=== PATIENT | female | born 1960 | race Caucasian/White ===

== ENCOUNTER 2022-04-16 05:03 | Observation (INO) ==
--- NOTE | 2022-03-13 14:09 | PAT Medication Instructions ---
Medication Instructions Date of Service March 13, 2022 Home Medications acetaminophen 650 mg tablet,extended release 1,300 mg PO QPM doxycycline monohydrate 100 mg tablet 100 mg PO QAM hydrochlorothiazide 25 mg tablet 25 mg PO QAM ibuprofen 800 mg tablet 800 mg PO QAM levothyroxine 175 mcg tablet 175 mcg PO QAM metoprolol tartrate 50 mg tablet 50 mg PO QAM ASK your surgeon for instructions ibuprofen 800 mg tablet 800 mg PO QAM DO NOT take the morning of surgery hydrochlorothiazide 25 mg tablet 25 mg PO QAM Take morning of surgery With a small sip of water, OTHERWISE NOTHING TO EAT OR DRINK AFTER MIDNIGHT: doxycycline monohydrate 100 mg tablet 100 mg PO QAM levothyroxine 175 mcg tablet 175 mcg PO QAM metoprolol tartrate 50 mg tablet 50 mg PO QAM Take evening before surgery acetaminophen 650 mg tablet,extended release 1,300 mg PO QPM Other Notes If you have any questions please call us at [phone] or [phone] or [phone] or [phone]
--- NOTE | 2022-03-20 09:42 | Anesthesiology Consultation ---
Date of Service March 20, 2022 Assessment & Plan (1) Encounter for pre-operative examination: - anesthesia concerns: pt reports trouble with spinal with last , was told had "arthritis" in spine, multiple unsuccessful attempts made. Neuraxial vs general anesthesia discussed with patient. She plans to further discuss with assigned anesthesiologist familia BULLOCK. She denied additional questions or concerns. - Outpatient joint assessment: Patient is currently scheduled for inpatient pathway. If re-evaluated pending system levels during current pandemic/surgeon requests outpatient pathway, patient is not acceptable candidate for outpatient joint program. - bilat TKR vs staged discussed, and patient wishes to proceed with bilat TKR accepting risk. She states this information was also provided by surgeon's office. Chart Review Chart Review: Acceptable Risk for Surgery and Patient seen in Pre Admission Testing Teaching & Discussion Pre-Anesthesia Teaching/Discussion Notes: Instructed NPO after midnight before surgery, except medications with 15 cc of water. Medication instructions provided according to the PAT guidelines. History Surgery Operation Date: 04/16/22 10:30 Proposed Procedures p Bilateral Total Knee Arthroplasty - Saqib Colon DO Height/Weight Height: 5 ft 7 in Weight: 111.5 kg Allergies Allergy/AdvReac Type Severity Reaction Status Date / Time Penicillins Allergy Intermediate Rash Verified 03/13/22 12:09 Medications Home Medications Medication Instructions Recorded Confirmed Last Taken acetaminophen 650 mg 1,300 mg PO QPM 03/13/22 03/13/22 Unknown tablet,extended release doxycycline monohydrate 100 mg 100 mg PO QAM 03/13/22 03/13/22 Unknown tablet hydrochlorothiazide 25 mg tablet 25 mg PO QAM 03/13/22 03/13/22 Unknown ibuprofen 800 mg tablet 800 mg PO QAM 03/13/22 03/13/22 Unknown levothyroxine 175 mcg tablet 175 mcg PO QAM 03/13/22 03/13/22 Unknown metoprolol tartrate 50 mg tablet 50 mg PO QAM 03/13/22 03/13/22 Unknown Past Medical History Medical History (Updated 03/20/22 @ 10:01 by Karla Fregoso PA-C) GERD (gastroesophageal reflux disease) rare, stable per pt History of anesthesia reaction PT REPORTS TROUBLE WITH SPINAL WITH LAST , WAS TOLD HAD "ARTHRITIS" IN SPINE, MULTIPLE UNSUCCESSFUL ATTEMPTS MADE History of COVID-19 07/2020- headache, nausea and 11/2021 sinus congestion, cough, body aches, joint pain-no hospitalization with either episode; no current issues Hx of pilonidal cyst x3 Hypertension controlled, stable per pt Hypothyroidism Nausea and vomiting after administration of anesthetic agent denies needing scop patch Rosacea Patient denies h/o stroke, seizures, heart attack, heart failure, DM, blood clots or blood transfusions. Exercise / Class Metabolic Activity III < 4 Walking/Shop/Light housework (denies CP or SOB with usual activities) Past Family History Family History Other No family history of adverse response to anesthesia Past Surgical History Surgical History (Updated 03/20/22 @ 10:00 by Karla Fregoso PA-C) History of cholecystectomy History of lumpectomy of right breast solid mass, noncancerous per pt, pathology benign History of total abdominal hysterectomy Hx of arthroscopic knee surgery right Hx of breast biopsy Hx of breast surgery right duct removal Hx of section x 2 Hx of partial thyroidectomy right Hx of tonsillectomy Past Anesthesia History No Family Hx of Anesthesia Complications and Other (PT REPORTS TROUBLE WITH SPINAL WITH LAST , WAS TOLD HAD "ARTHRITIS" IN SPINE, MULTIPLE UNSUCCESSFUL ATTEMPTS MADE ) History of PONV History of PONV (denies needing scop patch) and Hx of Motion Sickness Social History Smoking Status: Former smoker tobacco type: cigarettes Do You Dip or Chew Tobacco: No Smoking End Date: QUIT ~30 YRS AGO Hx Alcohol Use: Yes alcohol intake frequency: holidays/special occasions only Hx Substance Use: No substance use type: does not use Review of Systems Snoring, denies witnessed apneas. Chronic intermittent palpitations with associated sensation of "taking breath away". Denies associated chest discomfort, dizziness or lightheadedness. She states has been ongoing x years, states PCP is aware. Denies change or worsening. Patient denies chest pain, shortness of breath, dyspnea on exertion, fever, chills, cough, or wheezing. Physical Exam Vital Signs Vitals BP 127/81 P 67 TEMP 98.1 SP02 98% on RA RESP 17 Physical Full cervical extension range of motion without pain TMD 3.5 finger breadths Mallampati Score 2 Dentition: multiple chipped and loose teeth, upper plate; denies bridges, caps or crowns Lungs: normal respiratory effort. Clear throughout to auscultation, no adventitious breath sounds Cardiac: regular rate and rhythm, no murmurs noted Carotid arteries: negative bruit bilat Lab Results Anesthesia Preop Results Results Anesthesia Widget: WBC 7.48 K/ul (4.8-10.8) 03/20/22 Hgb 15.1 g/dl (12.0-16.0) 03/20/22 Hct 43.3 % (34.1-44.9) 03/20/22 Plt 364 K/uL (130-400) 03/20/22 Na 137 mmol/L (136-145) 03/20/22 K 3.9 mmol/L (3.5-5.1) 03/20/22 Cl 99 mmol/L (98-107) 03/20/22 CO2 30 mmol/L (21-32) 03/20/22 BUN 16 mg/dl (6-23) 03/20/22 Creat 0.79 mg/dl (0.6-1.2) 03/20/22 Glucose Level 103 mg/dl (70-99(Fasting)) H 03/20/22 PT 10.2 Seconds (9.0-12.0) 03/20/22 PTT 27.6 Seconds (21.0-31.0) 03/20/22 INR 1.0 (0.9-1.1) 03/20/22 Blood Type O Positive 03/20/22 Antibody Screen NEGATIVE 03/20/22 Testing Electrocardiogram Date: 03/20/22 Sinus bradycardia, rate 58 bpm Nonspecific T wave abnormality anterolateral leads Chest X-Ray Date: 03/20/22 There is mild elevation of the right hemidiaphragm. No pneumothorax. No pleural fusions. The lungs are clear. The heart is normal in size. IMPRESSION: No acute process within the chest. COVID-19 Risk Screen Screening Information COVID-19 Screen Date: 03/20/22 Exposure 21 Days Family/Household +COVID Last 21 Days: No Exposure 10 Days Any COVID Exposure Last 10 Days: No Symptoms Last 10 Days Experienced COVID Sx Last 10 Days: No + COVID 0-90 Days COVID + in Last 0-90 Days: No
[2022-04-16] MEDS ORDERED: TRANEXAMIC ACID 1,000 MG **IV Intra-op IV SCH (06:00)
[2022-04-16] MEDS ORDERED: ACETAMINOPHEN 500 MG TAB PO SCH ×2 (06:00→14:00)
[2022-04-16] MEDS ORDERED: TRANEXAMIC ACID 1,000 MG **IV Pre-op IV SCH (06:00)
[2022-04-16] MEDS ORDERED: dexAMETHasone 4 MG TAB PO SCH (06:00)
[2022-04-16] MEDS ORDERED: GABAPENTIN 300 MG CAP PO SCH (06:00)
[2022-04-16] MEDS ORDERED: LR 500ML BOLUS, THEN 15ML/HR IV SCH (06:00)
[2022-04-16] MEDS ORDERED: ORTHO JOINT MIX INFIL SCH (06:00)
[2022-04-16] MEDS ORDERED: LR 60ML/HR IV SCH (06:00)
[2022-04-16] MEDS ORDERED: FAMOTIDINE 20 MG TAB PO SCH (06:00)
--- NOTE | 2022-04-16 06:17 | History & Physical Bridge Note ---
Date of Service April 16, 2022 History & Physical Bridge Note I have examined the patient, reviewed the History & Physical and in the interval since the performance of the History & Physical I have noted the following changes of clinical significance: no changes noted
[2022-04-16] MEDS ORDERED: BUPIVACAINE 0.5 % 5 MG/1 ML PF 10ML VIAL ONE (06:28)
[2022-04-16] MEDS ORDERED: ROPIVACAINE 0.5% 5 MG/ML 30 ML VIAL ONE (06:28)
[2022-04-16] MEDS ORDERED: LIDOCAINE 2% MPF LOCAL 5 ML VIAL INFIL ONE (06:37)
[2022-04-16] MEDS ORDERED: ONDANSETRON INJ 2 MG/ML 2 ML VIAL ONE (06:37)
[2022-04-16] MEDS ORDERED: PROPOFOL IV EMULSION 10 MG/ML 20 ML VIAL IV ONE ×3 (06:37→09:09)
[2022-04-16] MEDS ORDERED: MIDAZOLAM HCL 1 MG/ML 2ML VIAL ONE ×3 (06:38→07:36)
[2022-04-16] MEDS ORDERED: fentaNYL citrate 100 MCG/2 ML VIAL ONE (06:38)
[2022-04-16] MEDS ORDERED: ORTHO JOINT ANESTHETIC ONE (07:01)
[2022-04-16] MEDS ORDERED: ATROPINE SULFATE 0.1 MG/ML 10ML SYR IV PRN (07:07)
[2022-04-16] MEDS ORDERED: ePHEDrine sulfate 50 MG/ML AMP IV PRN (07:07)
[2022-04-16] MEDS ORDERED: fentaNYL citrate 100 MCG/2 ML VIAL IV PRN (07:07)
[2022-04-16] MEDS ORDERED: HYDROmorphone INJ 2 MG/ML SYR/VIAL IV PRN (07:07)
[2022-04-16] MEDS ORDERED: ONDANSETRON INJ 2 MG/ML 2 ML VIAL IV PRN ×2 (07:07→10:51)
[2022-04-16] MEDS ORDERED: KETAMINE 50 MG/5 ML SYRINGE ONE (07:20)
[2022-04-16] MEDS ORDERED: ePHEDrine sulfate 50 MG/ML SYR ONE (07:37)
--- NOTE | 2022-04-16 09:20 | Operative Report ---
PG Post Operative Report Pre & Post Diagnosis Operation Date: 04/16/22 07:00 Pre-Op Diagnosis: Degenerative Joint Disease Bilateral Knees Post-Op Diagnosis: Degenerative Joint Disease Bilateral Knees I identified the patient and participated in the time-out.: Yes Procedure Operation Date: 04/16/22 07:00 Actual Procedures p Bilateral Total Knee Arthroplasty(Bilateral) - Saqib Colon DO Surgeon Saqib Colon DO Cda Teacher Saqib Pate PA-C Estimated Blood Loss 50 Findings Consistent with Post-Op Diagnosis Specimens Right and left femoral and tibial bones Description of Procedure Kanwal arrived [facility] for the above procedure. She was seen in the preoperative holding area and both knees were identified and signed. She was given a preoperative antibiotic, TXA, a spinal anesthetic and adductor nerve blocks. She was taken back to the operating room and laid on the table in supine position. She was given basic sedation. Both knees were then prepped and draped in sterile fashion. A timeout was done, and the patient and the operative extremities were properly identified. Right knee implants used: I used a Arline Persona total knee arthroplasty system with a size 6 standard femur, E tibia, 31 oval patella, and a size 14 medial congruent polyethylene bearing. All components were cemented in place with Palacos G cement. A midline incision was made directly over the patella. Dissection was taken down to the extensor mechanism. A midvastus arthrotomy was used. The medial retinaculum was released and the fat pad was mostly excised. The knee was flexed and the ACL, PCL, and meniscus were removed. A drill was sent down the center of the femoral canal followed by an intramedullary omar. Off that omar a distal femoral cutting block was placed. 9 mm was resected off the distal femur at 5 of valgus. A posterior referencing AP sizing guide was then placed on the distal femur. The femur measured to be a size 6. 2 drill holes were placed in 3 of external rotation. A 4-in-1 cutting block was then impacted into place. Anterior, posterior, and chamfer cuts were then made. The proximal tibia was then exposed. An external tibial alignment guide was placed. A tibial cut guide was then anchored in place and the proximal tibia was then resected. The posterior aspect of the knee was then opened up and any additional meniscus fragments and osteophytes were removed. The tibia measured to be a size E. The tibial plate was then placed in the appropriate rotation and the tibia was drilled and punched. Trial components were then placed. I used a size 14 medial congruent polyethylene insert. The knee was brought through a full range of motion and felt to be stable. The peg holes for the femur were then drilled. The patella was then everted and 9 mm was resected off the posterior aspect of the patella. The patella measured to be a size 31 oval. 3 peg holes were then drilled. A trial patella was placed. The knee was once again brought through a full range of motion and felt to be stable. Trial components were then removed. The surrounding soft tissues were injected with 50 cc of an orthopedic pain control cocktail. All components were then cemented into place with Palacos G cement. The final polyethylene insert was then snapped into place. Once cement was dry the tourniquet was deflated. Hemostasis was obtained. A dilute betadyne lavage was then done for 3 minutes. The joint was then irrigated with normal saline solution. The midvastus arthrotomy was then closed with #1 Vicryl suture. The skin was closed with 2-0 Vicryl, 3-0V lock suture, and rabia. A Silverlon and a soft compressive dressing were placed. Left knee implants used: I used a Arline Persona total knee arthroplasty system with a size 7 standard femur, E tibia, 31 oval patella, and a size 13 medial congruent polyethylene bearing. All components were cemented in place with Palacos G cement. A midline incision was made directly over the patella. Dissection was taken down to the extensor mechanism. A midvastus arthrotomy was used. The medial retinaculum was released and the fat pad was mostly excised. The knee was flexed and the ACL, PCL, and meniscus were removed. A drill was sent down the center of the femoral canal followed by an intramedullary omar. Off that omar a distal femoral cutting block was placed. 9 mm was resected off the distal femur at 5 of valgus. A posterior referencing AP sizing guide was then placed on the distal femur. The femur measured to be a size 7. 2 drill holes were placed in 3 of external rotation. A 4-in-1 cutting block was then impacted into place. Anterior, posterior, and chamfer cuts were then made. The proximal tibia was then exposed. An external tibial alignment guide was placed. A tibial cut guide was then anchored in place and the proximal tibia was resected. The posterior aspect of the knee was then opened up and any additional meniscus fragments and osteophytes were removed. The tibia measured to be a size E. The tibial plate was then placed in the appropriate rotation and the tibia was drilled and punched. Trial components were then placed. I used a size 13 medial congruent polyethylene insert. The knee was brought through a full range of motion and felt to be stable. The peg holes for the femur were then drilled. The patella was then everted and 9 mm was resected off the posterior aspect of the patella. The patella measured to be a size 31 oval. 3 peg holes were then drilled. A trial patella was placed. The knee was once again brought through a full range of motion and felt to be stable. Trial components were then removed. The surrounding soft tissues were injected with 50 cc of an orthopedic pain control cocktail. All components were then cemented into place with Palacos G cement. The final polyethylene insert was then snapped into place. Once cement was dry the tourniquet was deflated. Hemostasis was obtained. A dilute betadyne lavage was then done for 3 minutes. The joint was then irrigated with normal saline solution. The midvastus arthrotomy was then closed with #1 Vicryl suture. The skin was closed with 2-0 Vicryl, 3-0V lock suture, and rabia. A Silverlon and a soft compressive dressing were placed. Dwayne was then transferred to a hospital bed and taken to the postanesthesia care unit in stable condition. She tolerated the procedure well. Saqib Pate PA-C, was present for the entire procedure. He was critical for patient positioning, prepping, draping, retraction exposure, wound closure and application of sterile dressing. I attest to the content of the Intraoperative Record and any orders documented therein. Any exceptions are noted below.
--- NOTE | 2022-04-16 10:26 | Anesthesiology Progress Note ---
Date of Service April 16, 2022 Anesthesia Post Procedure Vital Signs Vital Signs: Temp Pulse Pulse Resp BP Pulse Ox O2 Del Method 04/16/22 10:10 36.4 C L 65 12 102/68 98 Room Air 04/16/22 10:00 74 19 93/59 L 93 Room Air 04/16/22 09:50 70 17 89/61 L 95 Room Air 04/16/22 09:40 71 18 93/61 L 99 Oxymask 04/16/22 09:33 36.0 C L 85 16 96/63 L 95 Oxymask 04/16/22 05:41 36.5 C 72 20 145/96 H 100 Room Air O2 Flow Rate 04/16/22 10:10 04/16/22 10:00 04/16/22 09:50 04/16/22 09:40 5 04/16/22 09:33 5 04/16/22 05:41 Pain Intensity Left Knee: Pain Intensity: 4 Transfer of Care Handoff Completed per policy Notes Mental Status: alert / awake / arousable and participated in evaluation Patient Amnestic to Procedure: Yes Nausea / Vomiting: adequately controlled Pain: adequately controlled Airway Patency, RR, SpO2: stable & adequate BP & HR: stable & adequate Hydration State: stable & adequate Anesthetic Complications: no major complications apparent and Pt Satisfied with anesthetic care
--- NOTE | 2022-04-16 10:36 | XRay Report ---
TWO VIEWS RIGHT KNEE CLINICAL HISTORY: Postoperative examination. FINDINGS: AP and crosstable lateral portable views of the right knee are obtained. A right knee arthr oplasty is in near anatomic alignment. There has been undersurface remodeling of the patella. No acut e fracture is seen. There are expected postoperative changes around the knee including skin clips, so ft tissue edema, and subcutaneous gas. IMPRESSION: Expected postoperative changes status post right knee arthroplasty. No acute fracture is seen. ACT 112: Negative or not required by law. Electronically signed by: Michael Anderson M.D. 04/16/2022 10:34 AM
[2022-04-16] MEDS ORDERED: bisacodyL 10 MG SUPP PR PRN (10:51)
[2022-04-16] MEDS ORDERED: MAGNESIUM HYDROXIDE SUSP 30 ML UDC PO PRN (10:51)
[2022-04-16] MEDS ORDERED: HYDROmorphone INJ 0.5 MG/0.5 ML SYR IV PRN (10:51)
[2022-04-16] MEDS ORDERED: NALOXONE HCL 0.4 MG/1 ML VIAL/CARP IV PRN (10:51)
[2022-04-16] MEDS ORDERED: METOCLOPRAMIDE HCL INJ 5 MG/ML 2 ML VIAL IV PRN (10:51)
--- NOTE | 2022-04-16 10:53 | XRay Report ---
LEFT KNEE 2 VIEWS History: Left total knee arthroplasty. Degenerative arthritis. Postop. FINDINGS: The patient is status post a left total knee arthroplasty. The hardware is intact. No fract ure or dislocation. Skin rabia are in place. IMPRESSION: Left total knee arthroplasty. No evidence for hardware complication. ACT 112: Negative or not required by law. Electronically signed by: Dante Crowell M.D. 04/16/2022 10:52 AM
[2022-04-16] MEDS: ACETAMINOPHEN 500 MG TAB PO SCH ×3 (11:28→21:25)
[2022-04-16] MEDS: KETOROLAC 30 MG/ML VIAL IV SCH ×3 (11:29→22:51)
[2022-04-16] MEDS: oxyCODONE HCL IR 5 MG TAB (IMMEDIATE RELEASE) PO PRN ×2 (13:00→17:08)
[2022-04-16] MEDS: SODIUM CHLORIDE 0.9% 1000ML 1,000 ML IV SCH ×2 (13:27→19:55)
[2022-04-16] MEDS: ceFAZolin 2000MG 2,000 MG/15 ML SYR IV SCH ×2 (17:12→22:51)
[2022-04-16] MEDS: ASPIRIN 81 MG ECTAB PO SCH (20:16)
[2022-04-16] MEDS: DOCUSATE SODIUM 100 MG CAP PO SCH (20:17)
[2022-04-16] MEDS ORDERED: SENNA 8.6 MG TAB PO SCH (21:00)
[2022-04-17] MEDS: oxyCODONE HCL IR 5 MG TAB (IMMEDIATE RELEASE) PO PRN ×2 (02:20→09:25)
[2022-04-17] MEDS: ACETAMINOPHEN 500 MG TAB PO SCH (05:05)
[2022-04-17] MEDS: KETOROLAC 30 MG/ML VIAL IV SCH ×2 (05:05→10:53)
[2022-04-17] MEDS ORDERED: dexAMETHasone 4 MG TAB PO SCH (08:00)
[2022-04-17] MEDS: ASPIRIN 81 MG ECTAB PO SCH (08:25)
[2022-04-17] MEDS: DOCUSATE SODIUM 100 MG CAP PO SCH (08:26)
[2022-04-17] MEDS ORDERED: MULTIVITAMIN TAB PO SCH (09:00)
[2022-04-17] MEDS ORDERED: METOPROLOL SUCC 50MG EXT REL TAB PO SCH (09:00)
[2022-04-17] MEDS ORDERED: LEVOTHYROXINE SODIUM 175 MCG TABLET PO SCH (09:00)
[2022-04-17] MEDS ORDERED: hydroCHLOROthiazide 25 MG TAB PO SCH (09:00)
[2022-04-17] MEDS ORDERED: DOXYCYCLINE HYCLATE 100 MG CAP PO SCH (09:00)
--- NOTE | 2022-04-17 09:18 | Orthopedic Progress Note ---
Date of Service April 17, 2022 Assessment & Plan (1) Status post bilateral knee replacements: Overall she is doing well. She has not been much pain in her knees. She will be seen by physical therapy today for ambulation and range of motion exercises. She is on aspirin for DVT prophylaxis. She can be discharged home later today if she does well with physical therapy. The nursing staff can change her dressings after therapy. She will follow-up with orthopedics in 2 weeks. Mitchell Schofield was seen and examined at bedside this morning. Overall she is doing fairly well. She is not having too much pain in her knees. She was up and ambulating to the bathroom last night. She has no complaints.. Review of Systems All systems reviewed & are unremarkable except as noted in HPI & below. Physical Exam On physical examination of her knees, the dressings are clean and dry. Her legs are out full extension. She has active dorsiflexion and plantarflexion of her ankles.. Results & Data Results & Data Laboratory Results . Diagnostic Findings Postoperative x-rays of both knees show the prosthesis to be in anatomic alignment without any evidence of fracture, desiccation, or loosening. PG Care Time/CCT Total # of Minutes Spent Total Time Spent with Patient: Total time spent is greater than 50% in coordination of care (as documented) at patient's floor/unit and/or counseling patient: Coding Level of Care Code 02138 Post Operative Follow-Up Diagnoses Status post bilateral knee replacements Z96.653
--- NOTE | 2022-04-17 09:19 | Discharge Summary ---
Date of Service April 17, 2022 Principal Diagnosis Same as "Discharge Diagnosis" noted below under Discharge Instructions. Discharge Exam On physical examination of her knees, the dressings are clean and dry. Her legs are out full extension. She has active dorsiflexion and plantarflexion of her ankles.. Discharge Data Procedures Performed Operation Date: 04/16/22 07:00 Actual Procedures p Bilateral Total Knee Arthroplasty(Bilateral) - Saqib Colon DO Ordered Studies 04/16/22 05:00 US - OR guided needle placemen Routine Hospital Course (1) Status post bilateral knee replacements: On April 16, 2022 Kanwal arrived at [facility] and underwent bilateral knee replacements without complication. She had a spinal anesthetic. Postoperatively she was started on aspirin for DVT prophylaxis and transferred to the general orthopedic floors. Her hospital course was uneventful. On postop day #1, her vital signs were stable and her pain was well controlled. She was able to participate well with physical therapy doing ambulation and range of motion exercises. She was then discharged home. She will follow-up with orthopedics in 2 weeks. PG Care Time/CCT Total # of Minutes Spent Total Time Spent with Patient: Total time spent is greater than 50% in coordination of care (as documented) at patient's floor/unit and/or counseling patient: Discharge Plan Discharge Items Patient Disposition: Home - Home Health Services Reason For Visit: POSTOP Discharge Diagnosis: Bilateral knee replacements Activity: Per Instructions section Non-emergency contact: Surgeon Call non-emergency contact if: your wound has increased redness and your wound has increased drainage Follow-up/Referrals: Ashley Sneed MD [Primary Care Provider] - Diet: Regular Addtl Attending Provider Instructions: Activity and Therapy Recommendations: * If you are using [facility] then therapy will be provided at your home until they feel you have accomplished all of your goals. * If you are using [facility] then Physical Therapy will be provided until they feel you are ready to start Outpatient Physical Therapy. * If you are not using home therapy then Outpatient Physical Therapy should start about 3-5 days from your day of surgery. Therapy will last about 6-10 weeks * It is important not to put a pillow under your knee when you are relaxing or sleeping. It is just as important to make sure you are getting your knee perfectly straight as it is to regain your knee bend. * You were shown a series of exercises in the hospital. Do these exercises three times each day including the exercises you were shown in physical therapy. * Get up and walk several times each day. For the first four weeks, try not to stand or walk for more than one hour at a time. If you do stand or walk for more than one hour, you will not hurt anything, but your leg will likely swel l. * As you feel comfortable, you may change from the walker or crutches to a cane and then to independent walking. Medications: * Narcotic You will likely be sent home from the hospital with a prescription for the narcotic pain medication that worked best throughout your stay. * Aspirin Most patients will be required to take Aspirin 81mg twice a day for 6 weeks after surgery. This is obtained [id number] and a prescription is not necessary. * Other medications may be prescribed for specific circumstances. If you have any questions, please call the office at . * Resume previous home medications unless otherwise instructed TEDs/Elastic Stockings: The white elastic stockings help limit swelling and prevent blood clots from forming in your legs.~ The more you wear them, the more they work. Wear them for six weeks. Dressing Care: The dressing can be changed after physical therapy on postop day #1. Daily dry dressing changes for a few days, especially if the incision is still draining some. If the incision is not draining then you may leave the rabia open to air. If there is a little bit of drainage or if the rabia are getting stuck on your clothing then cover the incision with a dry dressing. The rabia will be removed at your 2 week follow-up appointment. Showering: You may shower 5 days from the day of surgery as long as the incision is no longer draining. You may shower with the rabia exposed. Let soapy water run over the rabia and pat them dry. Do not scrub or soak the incision. Things To Watch For: * Drainage from the incision site that occurs more than one week after your surgery. * Increased redness at the incision site. * Fever above 102 degrees Fahrenheit. * Unusual chest pain or shortness of breath. * Call [facility] at with any of the above problems Follow-Up Visit: Follow-up with Dr. Colon's PA (Saqib Pate) 2-3 weeks after your day of surgery. He will remove your rabia and answer any questions. If you have any additional questions or concerns, Dr Colon is usually in the office at the same time and will be available An appointment was probably scheduled when you signed-up for surgery in the office. If you have any questions call Office Instructions: More detailed instructions as well as Frequently Asked Questions were provided in a folder by our office when you signed-up for surgery. Please review these instructions when you get home. If you have any further questions or concerns, please feel free to call the office at [phone] Pending Studies at Discharge: No Stand-Alone Forms: My [facility] [employer], Smoking Cessation Medications and DC Order Prescriptions: New aspirin 81 mg Tablet,Delayed Release (Dr/Ec) 81 mg PO BID 42 Days Qty: 84 0RF oxycodone-acetaminophen 5-325 mg tablet 1 tab PO Q6H PRN (Reason: pain) Qty: 30 0RF celecoxib [Celebrex] 200 mg capsule 200 mg PO BID Qty: 28 0RF Rx Instructions: Take 1 pill twice a day for 2 weeks after surgery ondansetron HCl 4 mg tablet 4 mg PO Q8H PRN (Reason: nausea and vomiting) Qty: 10 0RF Continued levothyroxine 175 mcg Tablet 175 mcg PO QAM doxycycline monohydrate 100 mg Tablet 100 mg PO QAM acetaminophen [Tylenol Arthritis] 650 mg Tablet Extended Release 1,300 mg PO QPM metoprolol tartrate 50 mg Tablet 50 mg PO QAM hydrochlorothiazide 25 mg Tablet 25 mg PO QAM Discontinued ibuprofen 800 mg Tablet 800 mg PO QAM Admission Data Admit Date/Time: 04/16/22 09:31 Attending Provider: Saqib Colon Admit Provider: Saqib Colon Primary Care Provider: Ashley Sneed
== END 2022-04-17 13:43 | disposition home health service (06) ==
LOC: ASU 05:03 → 3E 05:03